=== PATIENT | male | born 1990 | race African-American/Black ===

== ENCOUNTER 2017-05-05 13:38 | Emergency (ER) | payer OTHER ==
[~2017-05-05] VITALS: Ht 175.3 cm; Wt 81.6 kg
[2017-05-05 13:46] VITALS: BP 110/58
[2017-05-05] MEDS ORDERED: No Medications (13:50)
[2017-05-05 14:19] LABS: BASO # 0.1 10^3/uL (0.0-0.2); BASO % 0.7 % (0.0-1.0); EOS # 0.4 10^3/uL (0.0-0.50); EOS % 3.7 % (0.0-3.0); LYMPH # 1.9 10^3/uL (1.5-6.5); LYMPH % 18.4 % (24.0-44.0); MEAN CORPUSCULAR HEMOGLOBIN 27.3 pg (27.0-33.0); MEAN CORPUSCULAR HGB CONC 32.5 g/dl (32.0-36.5); MONO # 0.7 10^3/uL (0.0-0.8); MONO % 6.8 % (0.0-5.0); NEUTROPHILS # 7.1 10^3/uL (1.8-7.7); NEUTROPHILS % 69.4 % (36.0-66.0); PLATELET COUNT, AUTOMATED 293 10^3/uL (150-450); RED CELL DISTRIBUTION WIDTH 14.3 % (11.5-14.5); WHITE BLOOD COUNT 10.2 10^3/uL (4.0-10.0)
[2017-05-05 14:42] LABS: ALBUMIN 3.9 GM/DL (3.2-5.2); ALBUMIN/GLOBULIN RATIO 0.95 (1.00-1.93); ALKALINE PHOSPHATASE 151 U/L (45-117); ALT/SGPT 39 U/L (12-78); ANION GAP 13 MEQ/L (8-16); AST/SGOT 19 U/L (7-37); BILIRUBIN,DIRECT < 0.1 MG/DL (0.0-0.2); BILIRUBIN,TOTAL 0.2 MG/DL (0.2-1.0); BLOOD UREA NITROGEN 16 MG/DL (7-18); CALCIUM LEVEL 9.3 MG/DL (8.5-10.1); CARBON DIOXIDE LEVEL 20 MEQ/L (21-32); CHLORIDE LEVEL 106 MEQ/L (98-107); CREATININE FOR GFR 1.58 MG/DL (0.70-1.30); GLOMERULAR FILTRATION RATE 56.3 (>60); GLUCOSE, FASTING 137 MG/DL (70-105); MAGNESIUM LEVEL 2.8 MG/DL (1.8-2.4); PHOSPHORUS LEVEL 2.7 MG/DL (2.5-4.9); POTASSIUM SERUM 3.7 MEQ/L (3.5-5.1); SODIUM LEVEL 139 MEQ/L (136-145)
[2017-05-05] MEDS ORDERED: NS 1,000 ML IV ONE (15:00)
[2017-05-05 17:24] LABS: METHADONE URINE NEGATIVE (NEGATIVE)
[2017-05-05] MEDS ORDERED: levETIRAcetam 250MG TABLET (KEPPRA) PO ONE (18:00)
[2017-05-05] MEDS ORDERED: KEPP1TAB PO (18:01)
--- NOTE | 2017-05-06 21:20 | ECGEPIP ---
Stationary ECG Study [facility] - ED Test Date: 2017-05-05 Pat Name: TENISHA BALDERAS Department: Room: - Gender: M [employer] Game [employer] Writer: JESSIE : 1990 Requested By: LILIAN Mondragon Order Number: [id number] Reading MD: Ashley Coats Measurements Intervals [place] Rate: 125 P: 53 MD: 146 QRS: 3 QRSD: 84 T: 42 QT: 329 QTc: 476 Interpretive Statements SINUS TACHYCARDIA ABNORMAL RHYTHM ECG NSTTW ABNORMALITY BASELINE ARTIFACT LIMITS INTERPRETATION Electronically Signed On 05-06-2017 21:20:35 EST by Ashley Coats
--- NOTE | 2017-05-08 13:01 | REP ---
CT CERVICAL SPINE: CT cervical spine performed in the axial plane with sagittal and coronal reconstruction images. No compression fracture. The vertebral bodies are normal in height and are well-aligned. There is no prevertebral soft tissue swelling. Disc spaces are well preserved. No hematoma is seen in the spinal canal. IMPRESSION: No evidence of fracture or dislocation. Signed by Woody Lew MD 05/08/2017 04:58 P
--- NOTE | 2017-05-08 13:03 | REP ---
CT BRAIN WITHOUT IV CONTRAST: CT brain is performed without IV contrast. The ventricles are normal in size and position. There is no midline shift or mass effect. Lew-white differentiation is well maintained. There is no acute hemorrhage. There is no extra-axial fluid collection. No skull fracture is seen. The paranasal sinuses are clear. IMPRESSION: Negative noncontrast CT brain. Signed by Woody Lew MD 05/08/2017 04:59 P
--- NOTE | 2017-05-08 13:34 | REP ---
CHEST: Two views. There is no evidence of acute infiltrate. No pleural effusion is seen. The heart is normal in size. The mediastinal silhouette is unremarkable. The visualized osseous structures are intact. IMPRESSION: No acute pulmonary disease. Signed by Woody Lew MD 05/08/2017 04:59 P
== END 2017-05-05 18:20 | disposition home or self-care (01) ==
LOC: EDBD 13:38 → M ED 13:38
DX: G40.909 Epilepsy, unspecified, not intractable, without status epilepticus (principal); R00.0 Tachycardia, unspecified; R94.31 Abnormal electrocardiogram [ECG] [EKG]; F17.200 Nicotine dependence, unspecified, uncomplicated; Z88.0 Allergy status to penicillin

== ENCOUNTER 2017-05-13 14:02 | Emergency (ER) | payer OTHER ==
[~2017-05-13] VITALS: Ht 182.9 cm; Wt 82.0 kg
[~2017-05-13 14:02] MED LIST: KEPP1TAB PO; No Medications
[2017-05-13] MEDS ORDERED: LORazepam 2 MG/ML VIAL (J2060) As Ordered ONE (14:10)
[2017-05-13] MEDS ORDERED: LORazepam 2 MG/ML VIAL (J2060) IV STA (14:12)
[2017-05-13] MEDS ORDERED: levETIRAcetam INJection 1,000 MG in D5W 100 ML IV ONE (14:15)
[2017-05-13 14:38] LABS: BASO % 0.7 % (0.0-1.0); EOS # 0.3 10^3/uL (0.0-0.50); EOS % 4.9 % (0.0-3.0); IMMATURE GRANULOCYTE % 0.5 % (0-0); LYMPH # 1.2 10^3/uL (1.5-6.5); LYMPH % 21.6 % (24.0-44.0); MEAN CORPUSCULAR HEMOGLOBIN 27.2 pg (27.0-33.0); MEAN CORPUSCULAR HGB CONC 32.6 g/dl (32.0-36.5); MEAN CORPUSCULAR VOLUME 83.5 fl (80.0-96.0); MONO # 0.6 10^3/uL (0.0-0.8); MONO % 10.3 % (0.0-5.0); NEUTROPHILS # 3.6 10^3/uL (1.8-7.7); PLATELET COUNT, AUTOMATED 313 10^3/uL (150-450); RED CELL DISTRIBUTION WIDTH 14.3 % (11.5-14.5); WHITE BLOOD COUNT 5.7 10^3/uL (4.0-10.0)
[2017-05-13 14:56] LABS: ANION GAP 12 MEQ/L (8-16); BLOOD UREA NITROGEN 14 MG/DL (7-18); CALCIUM LEVEL 9.4 MG/DL (8.5-10.1); CARBON DIOXIDE LEVEL 22 MEQ/L (21-32); CHLORIDE LEVEL 107 MEQ/L (98-107); GLOMERULAR FILTRATION RATE > 60.0 (>60); GLUCOSE, FASTING 119 MG/DL (70-105); POTASSIUM SERUM 3.9 MEQ/L (3.5-5.1); SODIUM LEVEL 141 MEQ/L (136-145)
[2017-05-13] MEDS ORDERED: NS 1,000 ML IV ONE (18:30)
[2017-05-13 18:52] LABS: METHADONE URINE NEGATIVE (NEGATIVE)
[2017-05-13] MEDS ORDERED: KETOROLAC 30 MG/ML VIAL (J1885) IV ONE (19:15)
[2017-05-13] MEDS ORDERED: LIDOCAINE VISCOUS 2% SOLN 15ML UDC SSP ONE (19:15)
[2017-05-13 19:33] VITALS: BP 119/63
== END 2017-05-13 19:43 | disposition home or self-care (01) ==
LOC: M ED 14:02
DX: G40.909 Epilepsy, unspecified, not intractable, without status epilepticus (principal); F15.10 Other stimulant abuse, uncomplicated; F17.200 Nicotine dependence, unspecified, uncomplicated; Z79.899 Other long term (current) drug therapy; Z88.0 Allergy status to penicillin
CPT/HCPCS: 80048; 80180; 80307; 81001; 85025; 96374; 96375; 99284; J1885; J1953; J2060